=== PATIENT | female | born 1955 | race Caucasian/White ===

== ENCOUNTER 2016-08-23 02:16 | Emergency (ER) | payer MEDICARE, MEDICAID ==
[2016-08-23] MEDS ORDERED: OXYCODONE-ACETAMINOPHEN 5-325 MG TABLET PO ONE (04:09)
--- NOTE | 2016-08-23 04:12 | ER Document Report ---
ED General - General Chief Complaint: Fall Stated Complaint: FALL/ANKLE PAIN Time seen by provider: 04:10 Notes: Patient is a 60-year-old female that comes emergency department for chief complaint of pain in both of her ankles, she states that she got up out of bed and stepped awkwardly on her left ankle which caused her to come down awkwardly and hard on her right leg and she states she has swelling and pain in both. Patient states she pitched forward but denies head injury, neck pain, back pain , or any other injuries. She is not on a blood thinner. She takes hydrocodone for chronic pain. - Related Data Allergies/Adverse Reactions: codeine Allergy (Verified 08/23/16 02:30) Penicillins Allergy (Verified 08/23/16 02:30) zinc Allergy (Verified 08/23/16 02:30) Past Medical History - General Information source: Patient - Social History Smoking Status: Never Smoker Frequency of alcohol use: None Drug Abuse: None Lives with: Family Family History: Reviewed & Not Pertinent - Past Medical History Cardiac Medical History: Reports: Hx Atrial Fibrillation, Hx Hypercholesterolemia Musculoskeltal Medical History: Reports Hx Arthritis Past Surgical History: Reports: Hx Orthopedic Surgery - Immunizations Immunizations up to date: Yes Hx Diphtheria, Pertussis, Tetanus Vaccination: Yes Review of Systems - Review of Systems Constitutional: No symptoms reported EENT: No symptoms reported Cardiovascular: No symptoms reported Respiratory: No symptoms reported Gastrointestinal: No symptoms reported Genitourinary: No symptoms reported Female Genitourinary: No symptoms reported Musculoskeletal: See HPI Skin: No symptoms reported Hematologic/Lymphatic: No symptoms reported Neurological/Psychological: No symptoms reported Physical Exam - Vital signs Vitals: Pulse Ox 100 08/23/16 02:27 Interpretation: Normal - General General appearance: Appears well, Alert In distress: None - HEENT Head: Normocephalic, Atraumatic Eyes: Normal Pupils: PERRL - Respiratory Respiratory status: No respiratory distress Chest status: Nontender Breath sounds: Normal Chest palpation: Normal - Cardiovascular Rhythm: Regular Heart sounds: Normal auscultation Murmur: No - Abdominal Inspection: Normal Distension: No distension Bowel sounds: Normal Tenderness: Nontender Organomegaly: No organomegaly - Back Back: Normal, Nontender. No: Vertebra tenderness - Extremities General upper extremity: Normal inspection, Nontender, Normal color, Normal ROM , Normal temperature General lower extremity: Other - Patient with lateral swelling over the ankles and feet of both extremities, normal dorsalis pedis and capillary refill, normal leg exam otherwise - Neurological Neuro grossly intact: Yes Cognition: Normal Orientation: AAOx4 Rochelle Coma Scale Eye Opening: Spontaneous Matheus Coma Scale Verbal: Oriented Rochelle Coma Scale Motor: Obeys Commands Matheus Coma Scale Total: 15 Speech: Normal Motor strength normal: LUE, RUE, LLE, RLE Sensory: Normal - Psychological Associated symptoms: Normal affect, Normal mood - Skin Skin Temperature: Warm Skin Moisture: Dry Skin Color: Normal Course - Re-evaluation Re-evalutation: Patient with a small fracture of the distal right fibula with no displacement, patient with a small fracture of the left proximal metatarsal. Patient provided pain medication, splinting. Discussed with Dr. Burroughs. Patient doing much better after pain medication. Patient will be provided with a walker , pain medicine, she already has an orthopedic surgeon for follow-up, she was also given a bedpan, social service consult placed because of her difficulties getting around in her trailer. Patient does not live alone, lives with roommate. Discussed follow-up and return precautions, patient states understanding and agreement. - Vital Signs Vital signs: Temp Pulse Resp BP Pulse Ox 98.1 F 16 123/68 99 08/23/16 02:31 08/23/16 06:01 08/23/16 06:01 08/23/16 06:01 Procedures - Immobilization left ankle/foot Pre-Proc Neuro Vasc Exam: Normal Immobilizer type: Posterior ankle Performed by: PCT Post-Proc Neuro Vasc Exam: Normal Alignment checked and good: Yes right ankle/foot Pre-Proc Neuro Vasc Exam: Normal Immobilizer type: Posterior ankle Performed by: PCT Post-Proc Neuro Vasc Exam: Normal Alignment checked and good: Yes Discharge - Discharge Clinical Impression: Fibula fracture Qualifiers: Encounter type: initial encounter Fibula location: distal Fracture type: closed Fracture morphology: other fracture Laterality: right Qualified Code(s): S82.831A - Other fracture of upper and lower end of right fibula, initial encounter for closed fracture Metatarsal fracture Qualifiers: Encounter type: initial encounter Metatarsal bone: fifth Fracture type: closed Fracture alignment: nondisplaced Laterality: left Qualified Code(s): S92.355A - Nondisplaced fracture of fifth metatarsal bone, left foot, initial encounter for closed fracture Condition: Stable Disposition: HOME, SELF-CARE Additional Instructions: You have a fracture on the right and of the fibula phone, the nonweightbearing bone in the right leg. He also a fracture in the left foot in the bone that attaches to your pinky toe. Wear the splints, elevate, you can take these off and ice, use the walker, follow-up closely with your orthopedic provider for additional management. We have a social consult placed. Return to the emergency department for any concerning symptoms. Prescriptions: Oxycodone HCl [Oxycodone HCl 10 MG Tablet] 1 tab PO Q6H PRN #25 tablet PRN Reason: PAIN Walker [Folding Walker] 1 each MC ASDIR PRN #1 each PRN Reason: Referrals: FERNANDO STANTON MD [Primary Care Provider] - Follow up as needed
[2016-08-23] MEDS ORDERED: HYDROMORPHONE HCL INJ/PF 2 MG/ML AMPULE IM ONE (04:13)
[2016-08-23] MEDS ORDERED: FAMOTIDINE 20 MG TABLET PO ONE (04:39)
[2016-08-23] MEDS ORDERED: MAG HYDROX/AL HYDROX/SIMETH SUSP 30 ML UDCUP PO ONE (04:40)
[2016-08-23] MEDS ORDERED: ONDANSETRON HCL INJ/PF 4 MG/2 ML SDV IV ONE (05:58)
[2016-08-23] MEDS ORDERED: HYDROMORPHONE HCL INJ/PF 2 MG/ML AMPULE IV ONE (05:58)
[2016-08-23 06:20] VITALS: BP 123/68
== END 2016-08-23 06:31 | disposition home or self-care (01) ==
LOC: ER 02:16
PROC: 2W3RX1Z Immobilization of Left Lower Leg using Splint (ICD-10-PCS; principal; 2016-08-23)
PROC: 2W3QX1Z Immobilization of Right Lower Leg using Splint (ICD-10-PCS; 2016-08-23)
DX: S82.831A Other fracture of upper and lower end of right fibula, initial encounter for closed fracture (principal); S92.355A Nondisplaced fracture of fifth metatarsal bone, left foot, initial encounter for closed fracture; M25.571 Pain in right ankle and joints of right foot; M25.572 Pain in left ankle and joints of left foot; W19.XXXA Unspecified fall, initial encounter; G89.29 Other chronic pain; Z79.891 Long term (current) use of opiate analgesic; Z88.5 Allergy status to narcotic agent; Z88.0 Allergy status to penicillin; Z88.8 Allergy status to other drugs, medicaments and biological substances
CPT/HCPCS: 99283; 96374; 96375; 73610; 29515; A9270; J1170; J2405